=== PATIENT | male | born 1950 | race Caucasian/White ===

== ENCOUNTER 2020-12-02 06:50 | Inpatient (IN) ==
[2020-12-02] MEDS ORDERED: CeFAZolin Syr 2,000MG/20 ML 2,000 MG/20 ML SYRINGE IVPB ONE (07:26)
[2020-12-02] MEDS ORDERED: Ringers Solution, Lactated 1,000 ML IVC SCH (07:30)
[2020-12-02] MEDS ORDERED: Vancomycin 1,500 MG/265 ML IV.SOLN IVPB ONE (08:00)
[2020-12-02] MEDS ORDERED: NiCARdipine 2.5 MG/10 ML Syringe IVPB ONE (08:05)
[2020-12-02] MEDS ORDERED: *HR* FentaNYL (PF) 1,000 MCG/20 ML VIAL ONE (08:10)
[2020-12-02] MEDS ORDERED: *HR* Midazolam HCl 5 MG/5 ML VIAL IVP ONE ×2 (08:10→12:48)
[2020-12-02] MEDS ORDERED: *HR* Rocuronium Bromide 50 MG/5 ML VIAL ONE ×2 (08:11→11:56)
[2020-12-02] MEDS ORDERED: *HR* Etomidate 20 MG/10 ML AMPUL IVP ONE (08:12)
[2020-12-02] MEDS ORDERED: Famotidine 20 MG/2 ML VIAL ONE (08:12)
[2020-12-02] MEDS ORDERED: Norepinephrine 4 MG in 0.9 % Sodium Chloride 250 ML IVC PRN (08:15)
[2020-12-02] MEDS ORDERED: Dextrose 50 % in Water (Vial) 30 ML, Sodium Bicarbonate 20 MEQ, Lidocaine 1% 5 ML, Insu... TH ONE ×3 (08:15)
[2020-12-02] MEDS ORDERED: Heparin 15,000 UNIT in 0.9 % Sodium Chloride 500 ML IV ONE (08:15)
[2020-12-02] MEDS ORDERED: Dextrose 50 % in Water (Vial) 30 ML, Sodium Bicarbonate 20 MEQ, Potassium Chloride 15 M... TH ONE (08:15)
[2020-12-02] MEDS ORDERED: Protamine Sulfate 50 MG/5 ML VIAL IVP ONE (08:16)
[2020-12-02] MEDS ORDERED: Chlorhexidine Rinse 15 ML MOUTHWASH MM SCH (09:00)
[2020-12-02 09:14] LABS: ABG Base Excess 0 mEq/L (-2 to 3); ABG Chloride 110 mEq/L (98-107); ABG Glucose 100 mg/dL (60-95); ABG HCO3 27 mEq/L (21-27); ABG Ionized Calcium 1.17 mmol/L (1.15-1.35); ABG Oxygen Saturation 100 % (95-98); ABG PCO2 51 mmHg (35-45); ABG PH 7.33 pH Units (7.32-7.45); ABG PO2 216 mmHg (85-104); ABG TCO2 28 mEq/L (20-26)
[2020-12-02] MEDS ORDERED: *HR* Magnesium Sulfate 2 GM/50 ML PIGGYBACK IVPB ONE (09:54)
[2020-12-02] MEDS ORDERED: *HR* Heparin 10,000 UNIT/10 ML VIAL IR ONE (09:54)
[2020-12-02] MEDS ORDERED: D5% in Water 250 ML IV BAG IV ONE (09:54)
[2020-12-02] MEDS ORDERED: Mannitol 25% vial 12.5 GM/50 ML VIAL IVPB ONE (09:54)
[2020-12-02] MEDS ORDERED: Lidocaine 2% Syringe 100 MG/5 ML IVP ONE (09:54)
[2020-12-02] MEDS ORDERED: *HR* Phenylephrine 10 MG/ML VIAL IVC ONE (09:54)
[2020-12-02] MEDS ORDERED: Heparin 1,000 UNITS/500 mL IV.SOLN IR ONE (09:54)
[2020-12-02] MEDS ORDERED: Albumin Human 25% 25 GM/100 ML IV.SOLN IVPB ONE (09:54)
[2020-12-02] MEDS ORDERED: Tranexamic Acid 1,000 MG/10 ML VIAL IR ONE (09:54)
[2020-12-02 10:42] LABS: ABG Base Excess -1 mEq/L (-2 to 3); ABG Chloride 110 mEq/L (98-107); ABG Glucose 119 mg/dL (60-95); ABG HCO3 24 mEq/L (21-27); ABG Ionized Calcium 1.12 mmol/L (1.15-1.35); ABG Oxygen Saturation 100 % (95-98); ABG PCO2 40 mmHg (35-45); ABG PH 7.39 pH Units (7.32-7.45); ABG PO2 197 mmHg (85-104); ABG TCO2 25 mEq/L (20-26)
[2020-12-02] MEDS ORDERED: Tranexamic Acid 1,000 MG/10 ML VIAL ONE (10:52)
[2020-12-02 11:55] LABS: ABG Base Excess 0 mEq/L (-2 to 3); ABG Chloride 105 mEq/L (98-107); ABG Glucose 97 mg/dL (60-95); ABG HCO3 25 mEq/L (21-27); ABG Ionized Calcium 1.03 mmol/L (1.15-1.35); ABG Oxygen Saturation 100 % (95-98); ABG PCO2 39 mmHg (35-45); ABG PH 7.41 pH Units (7.32-7.45); ABG PO2 600 mmHg (85-104); ABG TCO2 26 mEq/L (20-26)
[2020-12-02 12:24] LABS: ABG Base Excess -1 mEq/L (-2 to 3); ABG Chloride 107 mEq/L (98-107); ABG Glucose 85 mg/dL (60-95); ABG HCO3 23 mEq/L (21-27); ABG Ionized Calcium 1.36 mmol/L (1.15-1.35); ABG Oxygen Saturation 98 % (95-98); ABG PCO2 37 mmHg (35-45); ABG PH 7.41 pH Units (7.32-7.45); ABG PO2 106 mmHg (85-104); ABG TCO2 24 mEq/L (20-26)
[2020-12-02] MEDS ORDERED: Naloxone 0.4 MG/ML INJ IVP PRN (12:28)
[2020-12-02] MEDS ORDERED: Insulin Regular, Human 100 UNIT/ML IV PRN (12:28)
[2020-12-02] MEDS ORDERED: *HR* Dextrose 50 % in Water (Vial) 50 ML VIAL IVP PRN (12:28)
[2020-12-02] MEDS ORDERED: Potassium Chloride 40 MEQ/200 ML BAG IVPB PRN (12:28)
[2020-12-02] MEDS ORDERED: Calcium Gluconate 1gm/50mL 1 GM/50 ML BAG IVPB PRN (12:28)
[2020-12-02] MEDS ORDERED: Acetaminophen 650 MG RECTAL SUPP RC PRN (12:28)
[2020-12-02] MEDS ORDERED: Acetaminophen 325 MG TABLET PO PRN (12:28)
[2020-12-02] MEDS ORDERED: Ondansetron 4 MG/2 ML VIAL IVP PRN (12:28)
[2020-12-02] MEDS ORDERED: Norepinephrine 4 MG/254 ML IV.SOLN IVC SCH (12:30)
[2020-12-02] MEDS ORDERED: 0.9 % Sodium Chloride w KCl 20 MEQ/1,000 ML MLS IVC SCH (12:30)
[2020-12-02 13:40] LABS: ABG Base Excess -2 mEq/L (-2 to 3); ABG HCO3 22 mEq/L (21-27); ABG Oxygen Saturation 99 % (95-98); ABG PCO2 33 mmHg (35-45); ABG PH 7.43 pH Units (7.32-7.45); ABG PO2 146 mmHg (85-104); ABG TCO2 23 mEq/L (20-26); Blood Gas Modality ASSIST CONTROL; Blood Gas VT 720 cc
[2020-12-02 13:48] LABS: Basophils % 0.4 %; Eosinophils # 0.1 K/mcL (0.0-0.6); Eosinophils % 1.2 %; Hematocrit 34.1 % (37.5-50.1); Hemoglobin 11.6 g/dL (12.9-16.9); Immature Granulocytes % 0.7 % (0-4); Lymphocytes # 0.7 K/mcL (0.6-4.6); Lymphocytes % 6.3 %; Mean Corpuscular Hemoglobin 32.1 pg (28.0-33.3); Mean Corpuscular Volume 94.5 fL (83.0-100.0); Mean Platelet Volume 9.5 fL (9.4-12.4); Monocytes # 0.5 K/mcL (0.0-1.3); Monocytes % 4.6 %; Platelet Count 115 K/mcL (140-400); Red Blood Count 3.61 M/mcL (4.19-5.50); Red Cell Distribution Width 12.7 % (11.5-14.5); Segmented Neutrophils % 86.8 %
[2020-12-02 13:53] LABS: Neutrophils # 9.5 K/mcL (1.6-8.9); White Blood Count 10.9 K/mcL (4.3-11.1)
[2020-12-02 13:58] LABS: INR 1.4
[2020-12-02 14:01] LABS: Activated Partial Thrombo Time 27.9 Seconds (26.0-36.0)
[2020-12-02 14:02] LABS: Prothrombin Time 16.3 Seconds (9.4-12.1)
[2020-12-02 14:20] LABS: BUN/Creatinine Ratio 16 (6-26); Blood Urea Nitrogen 16 mg/dL (8-23); Calcium 8.3 mg/dL (8.6-10.3); Carbon Dioxide 24 mEq/L (23-29); Chloride 111 mEq/L (98-107); Glucose 92 mg/dL (70-105); Magnesium 2.5 mg/dL (1.6-2.6); Osmolality,Calculated 291 (280-300); Potassium 3.9 mEq/L (3.5-5.1); Sodium 140 mEq/L (136-145); eGFR For African Americans > 60 (> 60); eGFR For Non-African Americans > 60 (> 60)
[2020-12-02] MEDS: Albumin Human 5% 12.5 GM/250 ML IV.SOLN IVPB PRN ×2 (14:36→15:14)
[2020-12-02] MEDS: *HR* FentaNYL (PF) 100 MCG/2 ML VIAL IVP PRN ×3 (14:38→21:24)
[2020-12-02] MEDS: niCARdipine 20 MG/200 ML MLS IVC SCH ×4 (14:42→23:28)
[2020-12-02] MEDS: Pantoprazole 40 MG VIAL IVP SCH (15:01)
[2020-12-02] MEDS: CeFAZolin 2 GM/120 ML BAG IVPB SCH ×2 (15:58→23:34)
[2020-12-02 16:46] LABS: ABG Base Excess -3 mEq/L (-2 to 3); ABG HCO3 20 mEq/L (21-27); ABG Oxygen Saturation 97 % (95-98); ABG PCO2 32 mmHg (35-45); ABG PH 7.42 pH Units (7.32-7.45); ABG PO2 93 mmHg (85-104); ABG TCO2 21 mEq/L (20-26); Blood Gas Modality ASSIST CONTROL; Blood Gas VT 720 cc
[2020-12-02] MEDS: Metoclopramide 10 MG/2 ML VIAL IVP SCH ×2 (17:20→23:34)
[2020-12-02] MEDS: *HR* OxyCODONE/APAP 5/325 TABLET PO PRN ×2 (19:22→23:34)
[2020-12-02] MEDS: Chlorhexidine Rinse 15 ML MOUTHWASH MM SCH (19:24)
[2020-12-02 20:45] LABS: ABG Base Excess -1 mEq/L (-2 to 3); ABG HCO3 23 mEq/L (21-27); ABG Oxygen Saturation 95 % (95-98); ABG PCO2 39 mmHg (35-45); ABG PH 7.39 pH Units (7.32-7.45); ABG PO2 79 mmHg (85-104); ABG TCO2 25 mEq/L (20-26); Blood Gas Modality CPAP/PS; Blood Gas Pressure Support 5 cm H2O
[2020-12-02 22:04] LABS: ABG Base Excess -2 mEq/L (-2 to 3); ABG HCO3 24 mEq/L (21-27); ABG Oxygen Saturation 92 % (95-98); ABG PCO2 41 mmHg (35-45); ABG PH 7.37 pH Units (7.32-7.45); ABG PO2 67 mmHg (85-104); ABG TCO2 25 mEq/L (20-26)
[2020-12-03] MEDS: niCARdipine 20 MG/200 ML MLS IVC SCH (01:28)
[2020-12-03] MEDS: *HR* FentaNYL (PF) 100 MCG/2 ML VIAL IVP PRN ×3 (02:05→21:55)
[2020-12-03 04:14] LABS: Basophils % 0.2 %; Hematocrit 34.8 % (37.5-50.1); Hemoglobin 11.8 g/dL (12.9-16.9); Immature Granulocytes % 0.4 % (0-4); Lymphocytes # 0.5 K/mcL (0.6-4.6); Lymphocytes % 4.5 %; Mean Corpuscular HGB Conc 33.9 g/dL (31.6-35.5); Mean Corpuscular Hemoglobin 32.5 pg (28.0-33.3); Mean Corpuscular Volume 95.9 fL (83.0-100.0); Mean Platelet Volume 9.5 fL (9.4-12.4); Monocytes # 0.7 K/mcL (0.0-1.3); Monocytes % 6.7 %; Neutrophils # 9.1 K/mcL (1.6-8.9); Platelet Count 123 K/mcL (140-400); Red Blood Count 3.63 M/mcL (4.19-5.50); Red Cell Distribution Width 13.2 % (11.5-14.5); Segmented Neutrophils % 88.2 %; White Blood Count 10.3 K/mcL (4.3-11.1)
[2020-12-03 04:22] LABS: INR 1.3; Prothrombin Time 14.7 Seconds (9.4-12.1)
[2020-12-03 04:36] LABS: BUN/Creatinine Ratio 14 (6-26); Blood Urea Nitrogen 15 mg/dL (8-23); Calcium 7.7 mg/dL (8.6-10.3); Carbon Dioxide 23 mEq/L (23-29); Chloride 110 mEq/L (98-107); Glucose 132 mg/dL (70-105); Magnesium 2.1 mg/dL (1.6-2.6); Osmolality,Calculated 287 (280-300); Potassium 4.3 mEq/L (3.5-5.1); Sodium 137 mEq/L (136-145); eGFR For African Americans > 60 (> 60); eGFR For Non-African Americans > 60 (> 60)
[2020-12-03] MEDS: Metoclopramide 10 MG/2 ML VIAL IVP SCH ×4 (05:24→18:21)
[2020-12-03] MEDS: *HR* OxyCODONE/APAP 5/325 TABLET PO PRN ×3 (05:24→17:21)
[2020-12-03] MEDS: Chlorhexidine Rinse 15 ML MOUTHWASH MM SCH ×2 (07:52→21:05)
[2020-12-03] MEDS: Pantoprazole 40 MG VIAL IVP SCH (07:52)
[2020-12-03] MEDS: Furosemide 20 MG/2 ML VIAL IVP SCH ×2 (07:53→16:39)
[2020-12-03] MEDS ORDERED: Aspirin Enteric Coated 81 MG Tablet PO SCH (09:00)
[2020-12-03] MEDS ORDERED: Acetaminophen 325 MG TABLET PO PRN (17:52)
[2020-12-03] MEDS ORDERED: *HR* OxyCODONE/APAP 5/325 TABLET PO PRN (17:52)
[2020-12-03] MEDS ORDERED: Ondansetron 4 MG/2 ML VIAL IVP PRN (17:52)
[2020-12-03] MEDS ORDERED: Insulin Regular, Human 100 UNIT/ML IV PRN (17:52)
[2020-12-03] MEDS ORDERED: Naloxone 0.4 MG/ML INJ IVP PRN (17:52)
[2020-12-03] MEDS ORDERED: Dextrose Gel 15 GM/37.5 ML TUBE PO PRN ×2 (17:52)
[2020-12-03] MEDS ORDERED: *HR* Dextrose 50 % in Water (Vial) 50 ML VIAL IVP PRN (17:52)
[2020-12-03] MEDS ORDERED: D5% in Water 1,000 ML IVC PRN (17:52)
[2020-12-03] MEDS: *HR* Heparin 5,000 UNIT/ML VIAL SQ SCH ×2 (18:28→19:04)
[2020-12-03] MEDS: Insulin LISPRO 300 UNITS/3 ML VIAL SUBQ SCH ×2 (18:40→21:11)
[2020-12-04] MEDS: Metoclopramide 10 MG/2 ML VIAL IVP SCH ×4 (00:12→18:11)
[2020-12-04] MEDS: *HR* FentaNYL (PF) 100 MCG/2 ML VIAL IVP PRN ×3 (02:37→10:13)
[2020-12-04 05:19] LABS: Basophils % 0.3 %; Eosinophils % 0.4 %; Hemoglobin 12.4 g/dL (12.9-16.9); Immature Granulocytes % 0.3 % (0-4); Immature Platelets 3.7 % (1.1-6.1); Lymphocytes # 0.7 K/mcL (0.6-4.6); Lymphocytes % 6.3 %; Mean Corpuscular HGB Conc 32.6 g/dL (31.6-35.5); Mean Corpuscular Hemoglobin 31.6 pg (28.0-33.3); Mean Corpuscular Volume 96.9 fL (83.0-100.0); Mean Platelet Volume 10.2 fL (9.4-12.4); Monocytes # 0.9 K/mcL (0.0-1.3); Monocytes % 8.1 %; Neutrophils # 9.5 K/mcL (1.6-8.9); Platelet Count 133 K/mcL (140-400); Red Blood Count 3.92 M/mcL (4.19-5.50); Red Cell Distribution Width 13.3 % (11.5-14.5); Segmented Neutrophils % 84.6 %; White Blood Count 11.2 K/mcL (4.3-11.1)
[2020-12-04 05:38] LABS: BUN/Creatinine Ratio 13 (6-26); Blood Urea Nitrogen 15 mg/dL (8-23); Calcium 8.2 mg/dL (8.6-10.3); Carbon Dioxide 29 mEq/L (23-29); Chloride 103 mEq/L (98-107); Glucose 111 mg/dL (70-105); Osmolality,Calculated 286 (280-300); Potassium 3.8 mEq/L (3.5-5.1); Sodium 137 mEq/L (136-145); eGFR For African Americans > 60 (> 60); eGFR For Non-African Americans > 60 (> 60)
[2020-12-04] MEDS: *HR* Heparin 5,000 UNIT/ML VIAL SQ SCH ×2 (06:32→18:05)
[2020-12-04] MEDS: Insulin LISPRO 300 UNITS/3 ML VIAL SUBQ SCH ×4 (07:53→20:54)
[2020-12-04] MEDS: Chlorhexidine Rinse 15 ML MOUTHWASH MM SCH ×2 (08:07→23:18)
[2020-12-04] MEDS: Furosemide 20 MG/2 ML VIAL IVP SCH ×2 (08:08→16:03)
[2020-12-04] MEDS: Aspirin Enteric Coated 81 MG Tablet PO SCH (08:08)
[2020-12-04] MEDS ORDERED: Pantoprazole 40 MG VIAL IVP SCH (09:00)
[2020-12-05] MEDS: Metoclopramide 10 MG/2 ML VIAL IVP SCH ×4 (00:11→17:10)
[2020-12-05] MEDS: *HR* Heparin 5,000 UNIT/ML VIAL SQ SCH ×2 (05:59→17:10)
[2020-12-05] MEDS: Aspirin Enteric Coated 81 MG Tablet PO SCH (07:10)
[2020-12-05] MEDS: Chlorhexidine Rinse 15 ML MOUTHWASH MM SCH ×2 (07:10→20:57)
[2020-12-05] MEDS: Insulin LISPRO 300 UNITS/3 ML VIAL SUBQ SCH ×3 (11:35→20:28)
[2020-12-06 00:43] LABS: Basophils % 0.5 %; Eosinophils # 0.1 K/mcL (0.0-0.6); Eosinophils % 1.1 %; Hematocrit 36.5 % (37.5-50.1); Hemoglobin 12.4 g/dL (12.9-16.9); Immature Granulocytes % 0.7 % (0-4); Lymphocytes # 0.9 K/mcL (0.6-4.6); Lymphocytes % 10.4 %; Mean Corpuscular Volume 94.1 fL (83.0-100.0); Mean Platelet Volume 9.2 fL (9.4-12.4); Monocytes # 0.7 K/mcL (0.0-1.3); Monocytes % 8.4 %; Platelet Count 183 K/mcL (140-400); Red Blood Count 3.88 M/mcL (4.19-5.50); Segmented Neutrophils % 78.9 %; White Blood Count 8.8 K/mcL (4.3-11.1)
[2020-12-06 01:03] LABS: BUN/Creatinine Ratio 19 (6-26); Blood Urea Nitrogen 20 mg/dL (8-23); Calcium 8.5 mg/dL (8.6-10.3); Carbon Dioxide 29 mEq/L (23-29); Chloride 103 mEq/L (98-107); Glucose 112 mg/dL (70-105); Osmolality,Calculated 289 (280-300); Potassium 3.4 mEq/L (3.5-5.1); Sodium 138 mEq/L (136-145); eGFR For African Americans > 60 (> 60); eGFR For Non-African Americans > 60 (> 60)
[2020-12-06] MEDS: *HR* Heparin 5,000 UNIT/ML VIAL SQ SCH (06:18)
[2020-12-06] MEDS: Aspirin Enteric Coated 81 MG Tablet PO SCH (08:06)
[2020-12-06] MEDS: Chlorhexidine Rinse 15 ML MOUTHWASH MM SCH (08:07)
[2020-12-06] MEDS: Insulin LISPRO 300 UNITS/3 ML VIAL SUBQ SCH (08:08)
[2020-12-06 11:24] VITALS: BP 107/61
== END 2020-12-06 12:01 | disposition home or self-care (01) | DRG 235 ==
LOC: SAMDAY 06:50 → ICNU 13:35 → 2NNU 12-04 02:26
PROVIDERS: ADMIT Thoracic Surgery (Cardiothoracic Vascular Surgery); ATTEND Thoracic Surgery (Cardiothoracic Vascular Surgery)